=== PATIENT | male | born 1975 | race Caucasian/White ===

== ENCOUNTER 2022-07-23 21:23 | Inpatient (IN) | payer OTHER, SELFPAY ==
[2022-07-23 21:24] VITALS: BP 150/98; PULSE 73; RESP 15; TEMP 36.3; O2SAT 99; BMI 36.3
--- NOTE | 2022-07-23 22:59 | CT_ITS ---
EXAM: CT NECK WITH INTRAVENOUS CONTRAST CLINICAL INDICATION: neck pain TECHNIQUE: Helically acquired images were obtained of the neck with intravenous contrast. This CT exam was performed using one or more of the following dose reduction techniques: automated exposure control, adjustment of the mA and/or kV according to patient size, and/or use of iterative reconstruction technique. This report was created using [employer] report [employer] technology. CONTRAST: IV 100mL Isovue-300 COMPARISON: None. FINDINGS: NASOPHARYNX: Unremarkable. SUPRAHYOID NECK: Unremarkable. Oropharynx, oral cavity, parapharyngeal space and retropharyngeal space are unremarkable. INFRAHYOID NECK: Unremarkable. The larynx, hypopharynx and supraglottis are unremarkable. SUBMANDIBULAR/PAROTID GLANDS: Unremarkable. Glands are normal in size. THYROID: Unremarkable. No enlarged or calcified nodules. BONES/JOINTS: Degenerative changes of the cervical spine. No acute fracture. SOFT TISSUES: Unremarkable. VASCULATURE: No acute findings. LYMPH NODES: Unremarkable. No lymphadenopathy. LUNG APICES: Unremarkable as visualized. CT/Soft Tissue Neck WITH Contrast IMPRESSION: 1. No acute abnormalities identified involving the soft tissues of the neck or the other visualized structures. 2. Degenerative changes of the cervical spine. Electronically Signed: Austen Reece MD at 0:22 EDT ,
[2022-07-23] MEDS: Ondansetron 4 MG/2 ML Vial IV (23:40)
[2022-07-23] MEDS: Morphine 4 MG/ML Syringe IV (23:41)
[2022-07-23] MEDS: Orphenadrine 60 MG/2 ML Ampul IV (23:42)
[2022-07-23] MEDS: 0.9% Normal Saline 1,000 ML 999 ML IV (23:42)
[2022-07-23] MEDS: dexAMETHasone 10 MG/ML Vial IV (23:42)
[2022-07-23 23:55] LABS: Absolute Lymphocyte Count 3.38 X10^3/uL (0.83-4.51); Absolute Neutrophil Count 16.8 X10^3/uL (2.0-7.7); Basophil# 0.05 X10^3/uL; Basophil% 0.2 % (0-1); Eosinophil# 0.04 X10^3/uL; Eosinophils% 0.2 % (0-5); Hematocrit 41.5 % (40-54); Hemoglobin 14.5 g/dL (13.0-16.5); Lymphocyte # 3.38 X10^3/ul (0.83-4.51); Lymphocyte % 15.1 % (19-41); Mean Corp Hgb Conc 34.9 g/dL (32-36); Mean Corpuscular Hgb 29.7 pg (27.0-32.0); Mean Corpuscular Volume 84.9 fL (80-94); Mean Platelet Vol. 8.4 fl (6.2-12.0); Monocyte# 1.93 X10^3/uL; Monocyte% 8.6 % (0-10); NRBC Flagged by Analyzer 0 % (0-5); Neutrophil # 16.81 X10^3/uL (2.7-7.7); Neutrophil % 74.9 % (47-70); POSITIVE DIFFERENTIAL YES; Platelet Count 310 K/mm3 (150-450); RBC Distribution Width CV 12.8 % (11.6-14.6); RBC Distribution Width SD 39.4 fl (35.1-43.9); Red Blood Count 4.89 M/mm3 (4.6-6.2); White Blood Count 22.4 K/mm3 (4.4-11.0)
[2022-07-24] VITALS (10 sets, daily range): BP systolic 125–152; BP diastolic 85–110; PULSE 61–78; RESP 14–20; TEMP 36.6–37.3; O2SAT 93–97; BMI 36.0
[2022-07-24 00:08] LABS: Anion Gap 5 (5-15); BUN 16 mg/dL (7-18); BUN/Creat Ratio 17.8 RATIO (10-20); Calcium,Total 9.5 mg/dL (8.5-10.1); Chloride 105 mmol/L (98-107); EST Glomerular Filtration Rate 96 mL/min (>60); Est Glom Filt Rate - Afr Amer 116 mL/min (>60); Estimated Creatinine Clearance 121.27 ml/min; Glucose 121 mg/dL (74-106); Potassium 3.8 mmol/L (3.5-5.1); Sodium Level 136 mmol/L (136-145)
[2022-07-24 00:23] LABS: Differential Comment SCANNED; Differential Indicated SCAN CRITERIA MET
[2022-07-24] MEDS: HYDROmorphone 0.5 MG/0.5 ML SYRINGE IV (00:29)
--- NOTE | 2022-07-24 00:46 | CT_ITS ---
EXAM: CT HEAD WITHOUT INTRAVENOUS CONTRAST CLINICAL INDICATION: headache TECHNIQUE: Multiple axial images were obtained of the head without intravenous contrast. This CT exam was performed using one or more of the following dose reduction techniques: automated exposure control, adjustment of the mA and/or kV according to patient size, and/or use of iterative reconstruction technique. This report was created using [employer] report generation technology. COMPARISON: None. FINDINGS: BRAIN AND EXTRA-AXIAL SPACES: Unremarkable. No intra- or extra-axial hemorrhage. No evidence of acute infarct. No intracranial mass or mass effect. There is preservation of the arnett/white matter interface. Posterior fossa structures are unremarkable. Ventricles are appropriate for age. No hydrocephalus. Basal cisterns are patent. BONES/JOINTS: Unremarkable. No discrete lytic or blastic abnormalities. SINUSES: Unremarkable as visualized. Clear. MASTOID AIR CELLS: Unremarkable. Clear. ORBITS: Visualized globes, extraocular muscles, optic nerves and retrobulbar fat appear unremarkable. CT/Brain/Head without Contrast IMPRESSION: Negative head/brain CT without intravenous contrast. Electronically Signed: Austen Reece MD at 1:43 EDT ,
--- NOTE | 2022-07-24 01:13 | EX.ED.DYSGE1 ---
HPI History of Present Illness Chief Complaint: Other, Pain/Inj Narrative Narrative: Patient is a 46-year-old male with past medical history of hypertension and paroxysmal atrial fibrillation but not on anticoagulation. He states that on Thursday he began having a sore throat and went to his family doctor on Thursday because of persistent symptoms. He reports that he tested positive for strep at that time and was started on amoxicillin and tramadol. He reports despite taking these he has been having increasing neck pain with no trauma. He reports that he contacted the on-call physician and there was concern he could be developing a abscess and was sent to the ER for evaluation. Patient denies any fevers he denies any numbness tingling or weakness. He denies any headache or history of immunosuppression but with worsening sore throat and neck pain presents for evaluation. [facility] Medical History (Updated 07/24/22 @ 03:[address] Ryan Waite DO) History of tobacco use HTN (hypertension) Obesity JOHN (obstructive sleep apnea) PAF (paroxysmal atrial fibrillation) Home Medications amlodipine 10 mg tablet 10 mg PO DAILY 07/24/22 [History Last Taken Unknown] hydrochlorothiazide 25 mg tablet 25 mg PO DAILY 07/24/22 [History Last Taken Unknown] metoprolol succinate 25 mg tablet,extended release 24 hr 25 mg PO DAILY 07/24/22 [History Last Taken Unknown] Allergy/AdvReac Type Severity Reaction Status Date / Time No Known Allergies Allergy Verified 07/23/22 21:24 Family History (Updated 07/24/22 @ 01:[address] Isha Corea MD) Father Lymphoma Mother Cancer Heart disease PAF (paroxysmal atrial fibrillation) Surgical History (Updated 07/24/22 @ 01:[address] Isha Corea MD) History of dental surgery Social History (Updated 07/24/22 @ 01:[address] Isha Corea MD) household members: spouse and family Smoking Status: Former smoker how long ago did patient quit smoking: Quit 07/2022 ~ 1 week prior to current presentation, 1 ppd since teen. alcohol intake: never substance use type: does not use ROS ROS ED Constitutional Constitutional ED: Denies chills or fever(s) Eyes Eyes: Denies change in vision ENT ENT ED: Reports sore throat Cardiovascular Cardiovascular: Denies chest pain Respiratory/Chest Respiratory/Chest: Denies cough or dyspnea Gastrointestinal Gastrointestinal: Denies abdominal pain, diarrhea, nausea or vomiting Genitourinary Genitourinary ED: Denies dysuria Musculoskeletal Musculoskeletal: Reports neck pain Integumentary Denies rash Neurologic Neurologic: Denies headache(s) or paresthesias Hematologic/Lymphatic Hematologic/Lymphatic: Denies easy bleeding or easy bruising EXAM Physical Exam Const Vital Signs: 07/23/22 21:24 Temperature 97.4 F L Temperature Source Temporal Pulse Rate 73 Respiratory Rate 15 Blood Pressure 150/98 H Blood Pressure Mean 115 Pulse Ox 99 Oxygen Delivery Method Room Air Positive well nourished, well developed and obese General Appearance ED: well developed Nutritional Appearance: obese HEENT Reports moist mucous membranes HEENT Narrative: Patient has bilateral tonsil hypertrophy with faint erythema. No exudates are noted no hard palate petechiae no trismus or change in voice or difficulty with secretions. Eyes PERRL and EOMs intact bilaterally Neck Neck Narrative: Patient has nuchal rigidity and difficulty flexing extending or side bending or rotating his neck. There is midline pain to palpation over top of C7 and T1 muscle belly region as well Resp normal respiratory effort and clear to auscultation bilaterally Cardio regular rate and regular rhythm GI normal to inspection, nondistended, normoactive bowel sounds, non-tender, non-distended and no masses Auscultation: normoactive bowel sounds Palpation: soft Extremity normal to inspection Neuro oriented x3 and CN's II-XII intact bilaterally Sensorium / Orientation: alert Psych mental status grossly normal Skin no rashes or lesions noted MDM MDM MDM Narrative Medical decision making narrative: Patient presented to the ER afebrile. On exam he did not have obvious changes concerning for peritonsillar abscess or acute epiglottitis. However because of his increasing neck pain and recent diagnosis of strep pharyngitis this is concerning nonetheless and basic labs with a CT scan with IV contrast of the soft tissue of the neck was obtained. Labs revealed leukocytosis with elevated neutrophil count. Patient's CRP is also elevated at 102 consistent with acute inflammation. CT scan of the soft tissue of the neck revealed no acute findings. Patient is afebrile and does not have any type of petechial rash but this would be a late finding and with his high white count and CRP there is concern he has meningitis because of his nuchal rigidity. Therefore blood cultures were obtained and he was started on vancomycin and Rocephin. A lumbar puncture was also performed in order to confirm diagnosis of meningitis. The procedure was documented below. At this time because of the abnormal vitals with persistent pain and need to rule out systemic infection as the cause patient will be admitted to the hospital while blood cultures and spinal fluid culture are pending. This plan of care was discussed with the hospitalist who is agreeable to it as well as the patient and family who are also agreeable to the plan of care. Please note I felt no need to repeat a strep test as patient/family states that he tested positive at the physician office just yesterday Patient was placed in an upright seated position. The back was cleaned with Betadine. The skin was anesthetized using 5 mL of 2% lidocaine with epinephrine local fashion. A 20-gauge spinal needle was then used to access the epidural space through the L4/L5 joint space. There was return of clear cerebrospinal fluid and approximately 8 mL of spinal fluid were obtained. Patient tolerated procedure well without complication History & Record Review Discussion w/independent historian: Patient and Family Lab Data Attestation: I reviewed the patient's lab results. Labs: Laboratory Results - last 24 hr 07/23/22 07/23/22 07/23/22 23:50 23:50 23:50 WBC 22.4 H RBC 4.89 Hgb 14.5 Hct 41.5 MCV 84.9 MCH 29.7 MCHC 34.9 RDW Std Deviation 39.4 RDW Coeff of Erika 12.8 Plt Count 310 MPV 8.4 Immature Gran % (Auto) 1.000 H Neut % (Auto) 74.9 H Lymph % (Auto) 15.1 L Schleicher % (Auto) 8.6 Eos % (Auto) 0.2 Baso % (Auto) 0.2 Absolute Neuts (auto) 16.8 H Absolute Lymphs (auto) 3.38 Nucleated RBC % 0 Differential Comment SCANNED Diff Path Review September foll ESR 51 H Sodium 136 Potassium 3.8 Chloride 105 Carbon Dioxide 26.0 Anion Gap 5 BUN 16 Creatinine 0.90 Estim Creat Clear Calc 121.27 Est GFR (MDRD) Af Amer 116 Est GFR (MDRD) Non-Af 96 BUN/Creatinine Ratio 17.8 Glucose 121 H Lactic Acid Calcium 9.5 C-React Prot Ext Range 102.00 H Procalcitonin 07/24/22 07/24/22 00:55 01:08 WBC RBC Hgb Hct MCV MCH MCHC RDW Std Deviation RDW Coeff of Erika Plt Count MPV Immature Gran % (Auto) Neut % (Auto) Lymph % (Auto) Schleicher % (Auto) Eos % (Auto) Baso % (Auto) Absolute Neuts (auto) Absolute Lymphs (auto) Nucleated RBC % Differential Comment Diff Path Review ESR Sodium Potassium Chloride Carbon Dioxide Anion Gap BUN Creatinine Estim Creat Clear Calc Est GFR (MDRD) Af Amer Est GFR (MDRD) Non-Af BUN/Creatinine Ratio Glucose Lactic Acid 0.7 Calcium C-React Prot Ext Range Procalcitonin 0.07 Radiography Diagnostic Testing: Clinical Impression(s) from Imaging Studies Soft Tissue Neck CT 07/23/22 22:59 IMPRESSION: 1. No acute abnormalities identified involving the soft tissues of the neck or the other visualized structures. 2. Degenerative changes of the cervical spine. Electronically Signed: Austen Reece MD at 0:22 EDT Reading Location ID and State: [facility] / [place] Tel , Service support , Brain CT 07/24/22 00:46 IMPRESSION: Negative head/brain CT without intravenous contrast. Electronically Signed: Austen Reece MD at 1:43 EDT Reading Location ID and State: [facility] / [place] Tel , Service support , Management Discussion w/another healthcare provider: Hospitalist Discharge Plan Dx/Rx/DC Orders Clinical Impression: Streptococcal pharyngitis, Meningitis Disposition Disposition: Acute Care [facility]
[2022-07-24 01:35] LABS: Procalcitonin 0.07 ng/mL (0.00-0.09)
[2022-07-24 01:39] LABS: Lactic Acid 0.7 mmol/L (0.4-1.9)
--- NOTE | 2022-07-24 01:48 | PCM.HP.STD ---
HPI - General General Date of Admission: 07/24/22 Date of Service: 07/24/22 Chief Complaint: Recent sore throat, mild cough, Dx outpatient strep, worsening neck pain/rigidity. HPI Narrative The patient is a 46 y/o M w/ PMHx: Obesity, PAF, JOHN, HTN, Tobacco use with recent cessation over the last ~ 1 week (prior 1 ppd since teen) who presents to the [facility] ED on 07/24/22 with history of onset of mild congestion, sore throat as well as subjective chills and cough starting the prior with onset more so of sore throat over Thursday and PCP eventual evaluation of the Thursday with diagnosis at that time of strep throat following swab with initiation on tramadol and amoxicillin however he has become more fatigued with generalized weakness and had onset significant neck discomfort worse with any movement with sharp stabbing 10 out of 10 pain prompting referral to the ED for evaluation. There was one individual in the house a child who did have a viral type syndrome but was only ill for 1 to 2 days and improved. Patient denies any fevers, significant headache, nausea, emesis, abdominal pain or cramping or diarrhea work-up in the ED included T97.4, heart rate 73, BP 150/98, respiratory rate 15, 99% on room air, CBC with WBC 22.4, hemoglobin 14.5, platelet 310 with significant left shift, BMP with glucose 121 otherwise not marked appearing, CRP 102, lactic acid and procalcitonin pending per ED physician, CT soft tissue neck obtained secondary to concerns for possible abscess with no acute abnormalities identified of the soft tissues of the neck are other visualized structures with degenerative changes of the cervical spine. Discussed case with ED physician and given his concern for possible meningitis he noted intention to obtain CT of the head which is pending upon requested evaluation and attempted LP. In the ED patient ministered vancomycin, Rocephin, Norflex 60 mg IV x1, Zofran 4 mg IV x1, morphine 4 mg IV x1, Dilaudid 0.5 mg IV x1 as well as Decadron 10 mg IV x1 in addition to 1 L normal saline bolus. [facility] Medical History (Updated 07/24/22 @ 01:[address] Isha Corea MD) History of tobacco use HTN (hypertension) Obesity JOHN (obstructive sleep apnea) PAF (paroxysmal atrial fibrillation) Home Medications amlodipine 10 mg tablet 10 mg PO DAILY 07/24/22 [History Last Taken Unknown] hydrochlorothiazide 25 mg tablet 25 mg PO DAILY 07/24/22 [History Last Taken Unknown] metoprolol succinate 25 mg tablet,extended release 24 hr 25 mg PO DAILY 07/24/22 [History Last Taken Unknown] Allergy/AdvReac Type Severity Reaction Status Date / Time No Known Allergies Allergy Verified 07/23/22 21:24 Family History (Updated 07/24/22 @ 01:[address] Isha Corea MD) Father Lymphoma Mother Cancer Heart disease PAF (paroxysmal atrial fibrillation) Surgical History (Updated 07/24/22 @ 01:[address] Isha Corea MD) History of dental surgery Social History (Updated 07/24/22 @ 01:[address] Isha Corea MD) household members: spouse and family Smoking Status: Former smoker how long ago did patient quit smoking: Quit 07/2022 ~ 1 week prior to current presentation, 1 ppd since teen. alcohol intake: never substance use type: does not use ROS ROS Narrative Admission Review of Systems: CONSTITUTIONAL: No weight loss, fever, + chills, weakness or fatigue. HEENT: + Neck pain, congestion, sore throat. Eyes: No visual loss, blurred vision, double vision or yellow sclerae. Ears, Nose, Throat: No hearing loss, sneezing. SKIN: No rash or itching, lesions, wounds. CARDIOVASCULAR: No chest pain, chest pressure or chest discomfort, palpitations, edema, orthopnea, syncopal events. RESPIRATORY: + Cough, No shortness of breath, marked sputum, wheezing, hemoptysis. GASTROINTESTINAL: + No anorexia, nausea, vomiting or diarrhea, abdominal pain, melena, BRBPR. GENITOURINARY: No dysuria, frequency, urgency or retention. NEUROLOGICAL: + Neck pain/rigidity, No headache, dizziness, syncope, paralysis, ataxia, numbness or tingling in the extremities, focal weakness, change in bowel or bladder control, seizure. MUSCULOSKELETAL: + muscle, back pain, joint pain or stiffness. HEMATOLOGIC: No anemia, bleeding or bruising. LYMPHATICS: No enlarged nodes. No history of splenectomy. PSYCHIATRIC: No history of depression or anxiety. ENDOCRINOLOGIC: No reports of sweating, cold or heat intolerance. No polyuria or polydipsia. ALLERGIES: No history of asthma, hives, eczema or rhinitis. Vital Signs Vital Signs Vital Signs: 07/23/22 21:24 Temperature 97.4 F L Temperature Source Temporal Pulse Rate 73 Respiratory Rate 15 Blood Pressure 150/98 H Blood Pressure Mean 115 Pulse Ox 99 Oxygen Delivery Method Room Air Weight Weight: 290 lb 6.4 oz Body Mass Index (BMI) 36.3 Physical Exam Narrative Physical Examination: General: Awake, alert, oriented x 3 and cooperative, seated upright in bed the ED bed, fatigued, appears uncomfortable, holding himself very stiffly because of neck discomfort with movement Skin: Normal color, normal turgor, no icterus, no cyanosis. HEENT: AT/NC, EOMI, PERRLA, dry MM, no carotid bruits or JVD noted, certainly reproducible bilateral musculoskeletal cervical neck region reproducible discomfort on evaluation, significantly rigid with sharp 10 out of 10 pain with any attempt to sit up or hold his neck. Lungs: Diminished, greater bases, proper effort, no rales, ronchi or wheezing. Heart: Regular rate and rhythm; no gallop, rub audible. Abdomen: Soft, obese, NTTP, ND, mildly hyperactive BS, no HSM. Extremities: No cyanosis, clubbing, or edema. Neurological: Patient awake, alert, oriented as noted, cognitive function intact; pupils equally reactive to light and accommodation, cranial nerves grossly normal, moving all 4 extremities, no focal deficits, moderately to severely global decrease secondary to acute complaints as noted. Psychiatric: Affect appears flat, fatigued, uncomfortable appearing, no acute evidence of depressive or anxiety feelings. Results Lab / Micro Data Result Diagrams: 07/23/22 23:50 07/23/22 23:50 Labs: Laboratory Results - last 24 hr 07/23/22 23:50: WBC 22.4 H, RBC 4.89, Hgb 14.5, Hct 41.5, MCV 84.9, MCH 29.7, MCHC 34.9, RDW Std Deviation 39.4, RDW Coeff of Erika 12.8, Plt Count 310, MPV 8.4, Immature Gran % (Auto) 1.000 H, Neut % (Auto) 74.9 H, Lymph % (Auto) 15.1 L, [place] % (Auto) 8.6, Eos % (Auto) 0.2, Baso % (Auto) 0.2, Absolute Neuts (auto) 16.8 H, Absolute Lymphs (auto) 3.38, Nucleated RBC % 0, Differential Comment SCANNED, Diff Path Review September07/23/22 23:50: Sodium 136, Potassium 3.8, Chloride 105, Carbon Dioxide 26.0, Anion Gap 5, BUN 16, Creatinine 0.90, Estim Creat Clear Calc 121.27, Est GFR (MDRD) Af Amer 116, Est GFR (MDRD) Non-Af 96, BUN/Creatinine Ratio 17.8, Glucose 121 H, Calcium 9.5, C-React Prot Ext Range 102.00 H Radiology Impression Soft Tissue Neck CT 07/23/22 22:59 IMPRESSION: 1. No acute abnormalities identified involving the soft tissues of the neck or the other visualized structures. 2. Degenerative changes of the cervical spine. Electronically Signed: Austen Reece MD at 0:22 EDT Reading Location ID and State: [facility] / [place] Tel , Service support , Assessment & Plan Assessment/Plan (1) Meningitis: (2) Streptococcal pharyngitis: PLAN: Plan The patient is a 46 y/o M w/ PMHx: PAF, Obesity, JOHN, HTN, Tobacco use with recent cessation over the last ~ 1 week (prior 1 ppd since teen) who presents to the [facility] ED on 07/24/22 with history of onset of mild congestion, sore throat as well as subjective chills and cough starting the prior with onset more so of sore throat over Thursday and PCP eventual evaluation of the Thursday with diagnosis at that time of strep throat following swab with initiation on tramadol and amoxicillin however he has become more fatigued with generalized weakness and had onset significant neck discomfort worse with any movement with sharp stabbing 10 out of 10 pain prompting referral to the ED for evaluation. #1. Acute streptococcal pharyngitis with concerns for possible concurrent meningitis with possible recent acute viral syndrome: We will admit to medical surgical floor, awaiting CT of the head per ED as well as lumbar puncture and would certainly de-escalate or alter therapies pending cultures obtained from the LP, will maintain in the interim on IV vancomycin as well as IV Rocephin, continue as needed tizanidine given concurrent significant musculoskeletal component to the neck discomfort as well, maintain on aspiration precautions, as needed antiemetic, as needed pain regimen given severity of neck discomfort at this time as well. Pending LP may consider ID involvement, ESR also requested a CRP is notably elevated. We will obtain full respiratory panel and COVID PCR given vague respiratory symptoms and one ill contact in the house who had from the description of viral syndrome concurrently but is since improved. #2. Hypertension: Continue home regimen including amlodipine, hydrochlorothiazide as well as metoprolol with hold parameters as needed, PRN hydralazine. #3. PAF: We will continue patient home metoprolol regimen, not chronically anticoagulated, given recent diagnosis of sleep apnea possibly related, continue CPAP nightly. #4. Recent tobacco cessation with tobacco use history: Patient with 1 pack/day usage until recent cessation over the last week since he had been a teenager, encourage continued tobacco cessation, RT consultation, NR if desired. #5. Obesity: Weight loss and lifestyle changes encouraged. #6. JOHN: CPAP nightly. #7. DVT prophylaxis: SCDs, defer chemoprophylaxis as planned LP currently. #8. CODE STATUS: Full code. Admission Evaluation Time spent evaluating chart, patient history, patient evaluation, care planning and discussion with specialists: 60 minutes. Charges/Coding Visit Charges Inpatient E&M: 43552 Init Hosp L2
[2022-07-24 02:26] LABS: Erythrocyte Sedimentation Rate 51 mm/hr (0-20)
[2022-07-24 03:14] LABS: Body Fluid Mononuclear WBC # 0.001 10^3/uL
[2022-07-24 03:19] LABS: Glucose Spinal Fluid 62 mg/dL (40-75)
[2022-07-24 04:19] LABS: Appearance CSF (character) CLEAR (Clear); Auto B Fluid Analyzer BKGD Ct COUNTS W/IN LIMITS (W/IN LIMITS); Body Fluid QC Type(s) BF1Q; CSF Color COLORLESS (Colorless); RBC Count, Spinal Fluid 24 /mm-3 (None seen); Tested Tube # 4; White Count, CSF 3 /mm-3 (0 - 5)
[2022-07-24] MEDS: 0.9% Normal Saline 1,000 ML 125 ML IV (05:36)
[2022-07-24] MEDS: Ketorolac 15 MG/ML Vial IV ×3 (05:40→22:37)
--- NOTE | 2022-07-24 05:54 | PCM.RX.CS ---
Consult Pharmacy has been consulted to manage selected antiobiotic: Vancomycin Type of Consult: New start Labs: Sodium 136 mmol/L (136-145) 07/23/22 23:50 Potassium 3.8 mmol/L (3.5-5.1) 07/23/22 23:50 Chloride 105 mmol/L (98-107) 07/23/22 23:50 Carbon Dioxide 26.0 mmol/L (21.0-32.0) 07/23/22 23:50 Anion Gap 5 (5-15) 07/23/22 23:50 BUN 16 mg/dL (7-18) 07/23/22 23:50 Creatinine 0.90 mg/dL (0.70-1.30) 07/23/22 23:50 Est GFR (MDRD) Af Amer 116 mL/min (>60) 07/23/22 23:50 Est GFR (MDRD) Non-Af 96 mL/min (>60) 07/23/22 23:50 BUN/Creatinine Ratio 17.8 RATIO (10-20) 07/23/22 23:50 Glucose 121 mg/dL (74-106) H 07/23/22 23:50 Microbiology: Microbiology 07/24/22 02:57 Csf, Spinal Fluid Gram Stain - Preliminary Goal Trough: 15-20 mcg/mL Pharmacy Plan for Drug Dosing: Pharmacy Service will continue to monitor and adjust dosing as required. Medications Vancomycin HCl 1,500 mg/ (Sodium Chloride) 530 mls @ 250 mls/hr IV Q8H SHERLEY Discontinued Medications Vancomycin HCl 2,000 mg/ (Sodium Chloride) 540 mls @ 250 mls/hr IV X1 ONE Stop: 07/24/22 02:59 Last Admin: 07/24/22 05:41 Dose: Infused Follow-Up Labs: Trough Vancomycin Labs to be done on [date and time ordered]: 07/25 @ 0139
[2022-07-24 06:19] LABS: Absolute Lymphocyte Count 1.87 X10^3/uL (0.83-4.51); Absolute Neutrophil Count 17.5 X10^3/uL (2.0-7.7); Basophil# 0.03 X10^3/uL; Basophil% 0.2 % (0-1); Hematocrit 41.5 % (40-54); Hemoglobin 14.5 g/dL (13.0-16.5); Lymphocyte # 1.87 X10^3/ul (0.83-4.51); Lymphocyte % 9.4 % (19-41); Mean Corp Hgb Conc 34.9 g/dL (32-36); Mean Corpuscular Volume 85.7 fL (80-94); Mean Platelet Vol. 8.4 fl (6.2-12.0); Monocyte# 0.38 X10^3/uL; Monocyte% 1.9 % (0-10); NRBC Flagged by Analyzer 0 % (0-5); Neutrophil # 17.49 X10^3/uL (2.7-7.7); Neutrophil % 87.6 % (47-70); Platelet Count 300 K/mm3 (150-450); RBC Distribution Width CV 12.7 % (11.6-14.6); RBC Distribution Width SD 39.7 fl (35.1-43.9); Red Blood Count 4.84 M/mm3 (4.6-6.2)
[2022-07-24 06:32] LABS: ALB/GLOB Ratio 0.6 RATIO (0.9-2.4); AST(SGOT) 11 U/L (15-37); Alanine Aminotransfer ALT/SGPT 29 U/L (16-61); Alkaline Phosphatase 81 U/L (45-117); Anion Gap 6 (5-15); BUN 14 mg/dL (7-18); BUN/Creat Ratio 16.3 RATIO (10-20); Calcium,Total 9.3 mg/dL (8.5-10.1); Chloride 106 mmol/L (98-107); Creatinine, Serum 0.86 mg/dL (0.70-1.30); EST Glomerular Filtration Rate 101 mL/min (>60); Est Glom Filt Rate - Afr Amer 123 mL/min (>60); Estimated Creatinine Clearance 126.91 ml/min; Globulin 4.8 g/dL (2.2-4.2); Glucose 149 mg/dL (74-106); Potassium 4.1 mmol/L (3.5-5.1); Protein, Total 7.8 g/dL (6.4-8.2); Sodium Level 138 mmol/L (136-145)
[2022-07-24] MEDS: Gabapentin 100 MG Capsule PO ×3 (08:36→17:27)
[2022-07-24] MEDS: Metoprolol(XL)Succ 25 MG Tablet PO (08:37)
[2022-07-24] MEDS: hydroCHLOROthiazide 25 MG Tablet PO (08:37)
[2022-07-24] MEDS: amLODIPine 10 MG Tablet PO (08:37)
--- NOTE | 2022-07-24 12:00 | CASEMGMT ---
RN MINA Face to Face with patient for initial transition planning/care coordination assessment. RN CM introduced self and role at [facility]. Patient lying in bed, alert and oriented. Patient willing to participate in assessment and is able to answer all questions appropriately. Care providers, pharmacy, and demographics verified. Patient wishes to discharge home, denies need for home health at this time. Patient states he has no further needs or concerns at this time. CM to follow for discharge planning needs that may arise. PCP: Jareth Judd Specialists: Patient follows with gymnastics coach in [place] Preferred Pharmacy: [facility] Insurance: [employer] Prescription Benefit: yes Living Will/HPOA: yes, Christiane Carrizales LNOK: Living Arrangements: Patient lives with in a 2 story home. Patient is independent and able to ambulate stairs Transportation: self, DME/HHC: Patient denies DME in the home. No previous HHC or SNF. Disposition Plan: Patient to discharge home with family support and follow-up plans in place. Margaret REYNAGA, RN, CM
[2022-07-24 13:25] LABS: Pathologist Review Reviewed
[2022-07-24] MEDS: 0.9% Saline Lock 10 ML Syringe IV ×2 (14:11→22:37)
--- NOTE | 2022-07-24 15:28 | PN_ITS ---
Subjective Subjective Patient seen and examined. He feels much better. He feels his sore throat has improved and his neck pain has improved markedly. He denies any fever, chills, palpitations, dizziness, nausea vomiting or any other symptoms. Review of systems otherwise negative. He has remained hemodynamically stable. Objective Data Objective Data Vital Signs: Vital Signs Temp Pulse Resp BP Pulse Ox O2 Del Method 98.4 F 63 14 135/88 H 97 Room Air 07/24/22 14:11 07/24/22 14:11 07/24/22 14:11 07/24/22 14:11 07/24/22 14:11 07/24/22 14:11 Oxygen Delivery Method Room Air Weight: 288 lb 2.307 oz Body Mass Index (BMI) 36.0 Intake & Output: Intake and Output for Last 24 Hours 07/22/22 07/23/22 07/24/22 23:59 23:59 23:59 Intake Total 3102.92 / 3102.92 Balance 3102.92 / 3102.92 Lab / Micro Data Result Diagrams: 07/24/22 05:50 07/24/22 05:50 Labs: Laboratory Results - last 24 hr 07/23/22 23:50: WBC 22.4 H, RBC 4.89, Hgb 14.5, Hct 41.5, MCV 84.9, MCH 29.7, MCHC 34.9, RDW Std Deviation 39.4, RDW Coeff of Erika 12.8, Plt Count 310, MPV 8.4, Immature Gran % (Auto) 1.000 H, Neut % (Auto) 74.9 H, Lymph % (Auto) 15.1 L , [place] % (Auto) 8.6, Eos % (Auto) 0.2, Baso % (Auto) 0.2, Absolute Neuts (auto) 16.8 H, Absolute Lymphs (auto) 3.38, Nucleated RBC % 0, Differential Comment SCANNED, Diff Path Review Reviewed 07/23/22 23:50: Sodium 136, Potassium 3.8, Chloride 105, Carbon Dioxide 26.0, Anion Gap 5, BUN 16, Creatinine 0.90, Estim Creat Clear Calc 121.27, Est GFR (MDRD) Af Amer 116, Est GFR (MDRD) Non-Af 96, BUN/Creatinine Ratio 17.8, Glucose 121 H, Calcium 9.5, C-React Prot Ext Range 102.00 H 07/23/22 23:50: ESR 51 H 07/24/22 00:55: Lactic Acid 0.7 07/24/22 01:08: Procalcitonin 0.07 07/24/22 02:00: COVID-19 (SAMY) Not Detected 07/24/22 02:57: CSF Glucose 62, CSF Total Protein 31.0 07/24/22 02:57: Fld Polynuclear WBCs # 0.000, Fld Polynuclear WBCs % 0.0, Fluid Mononuclear WBCs 0.001, Fld Mononuclear WBCs % 100.0, CSF Appearance CLEAR, CSF Color COLORLESS, CSF WBC 3, CSF RBC 24 H, CSF Cell Count Tube # 4, CSF Total Cell Counted TNP, CSF Comment May follow 07/24/22 05:50: WBC 20.0 H, RBC 4.84, Hgb 14.5, Hct 41.5, MCV 85.7, MCH 30.0, MCHC 34.9, RDW Std Deviation 39.7, RDW Coeff of Erika 12.7, Plt Count 300, MPV 8.4, Immature Gran % (Auto) 0.900, Neut % (Auto) 87.6 H, Lymph % (Auto) 9.4 L, [place] % (Auto) 1.9, Eos % (Auto) 0.0, Baso % (Auto) 0.2, Absolute Neuts (auto) 17.5 H, Absolute Lymphs (auto) 1.87, Nucleated RBC % 0 07/24/22 05:50: Sodium 138, Potassium 4.1, Chloride 106, Carbon Dioxide 26.0, Anion Gap 6, BUN 14, Creatinine 0.86, Estim Creat Clear Calc 126.91, Est GFR (MDRD) Af Amer 123, Est GFR (MDRD) Non-Af 101, BUN/Creatinine Ratio 16.3, Glucose 149 H, Calcium 9.3, Total Bilirubin 0.50, AST 11 L, ALT 29, Alkaline Phosphatase 81, Total Protein 7.8, Albumin 3.0 L, Globulin 4.8 H, Albumin/Globulin Ratio 0.6 L Micro: Microbiology 07/24/22 02:57 Csf, Spinal Fluid Gram Stain - Final 07/24/22 02:00 Mucosa - Nasopharyngeal Respiratory Panel (PCR) - Final Radiography Diagnostic Testing: Radiology Impression Soft Tissue Neck CT 07/23/22 22:59 IMPRESSION: 1. No acute abnormalities identified involving the soft tissues of the neck or the other visualized structures. 2. Degenerative changes of the cervical spine. Electronically Signed: Austen Reece MD at 0:22 EDT Reading Location ID and State: [address] [place] [address] Tel , Service support , Brain CT 07/24/22 00:46 IMPRESSION: Negative head/brain CT without intravenous contrast. Electronically Signed: Austen Reece MD at 1:43 EDT Reading Location ID and State: [facility] / [place] Tel , Service support , Physical Exam Const alert, oriented x3 and no apparent distress General Appearance: cooperative HEENT normocephalic, head/scalp atraumatic and moist oral mucous membranes Eyes EOMs intact bilaterally Neck no lymphadenopathy, supple and no JVD Neck Narrative: nuchal rigidity has improved. Able to flex neck much more now Lymph Lymphatic: no lymphadenopathy noted and no lymphedema noted Resp normal respiratory effort, normal air movement and clear to auscultation bilaterally Cardio regular rate, regular rhythm, S1 normal heart sound, S2 normal heart sound and no murmurs GI normal to inspection, nondistended, normoactive bowel sounds, soft to palpation, non-tender and non-distended Extremity normal capillary refill and no clubbing, cyanosis or edema Skin General Skin Exam: no breakdown Neuro CN's II-XII intact bilaterally, no focal motor deficits, no sensory deficits noted and deep tendon reflexes 2+ bilaterally Neuro Narrative: neck supple, Kernig's and Brudzinski's signs negative Motor Exam: strength 5/5 throughout Psych thought process normal Assessment & Plan Assessment/Plan (1) Streptococcal pharyngitis: PLAN: Plan #Strep pharyngitis * sore throat is much beter and he is able to flex his neck much more now * Diagnosed wih strep throat a couple of days prior to admission * on IV vancomycin and rocephin * on IV morphine also * pain meds as tolerated * cepacol lozenges * WBC has trended down to 20. * due to low suspicion for meningitis and his neck pain explaiined by the pharyngitis, will dc the vanc and rocephin and place on zosyn * #Neck pain * On admission complained of neck pain and nuchal rigidity. LP done shows no evidence of meningitis. * Neck pain is largely resolved and he is able to flex and extend his neck much better. * CT soft tissue neck showed no acute abnormalities involving the soft tissues o f the neck or the visualized structures. * Brain CT showed no acute intracranial pathology. * I have a low suspicion for meningitis and think that the neck pain was likely due to the severity of his strep pharyngitis. * #Hypertension: On amlodipine and hydrochlorothiazide as well as metoprolol. On IV hydralazine as needed #Paroxysmal A-fib: On metoprolol. Not chronically anticoagulated. Unclear why. May be because his age does not meet the cutoff criteria. #JOHN: On CPAP nightly. #DVT prophylaxis: SCDs Charges/Coding Visit Charges Inpatient E&M: 67402 Subs Hosp L2
[2022-07-25 03:04] VITALS: BP 137/99; PULSE 58; RESP 20; TEMP 36.4; O2SAT 93
[2022-07-25] MEDS: Ketorolac 15 MG/ML Vial IV ×2 (04:54→13:02)
[2022-07-25 06:00] VITALS: BMI 35.9
[2022-07-25 07:17] LABS: Absolute Lymphocyte Count 5.02 X10^3/uL (0.83-4.51); Absolute Neutrophil Count 12.4 X10^3/uL (2.0-7.7); Basophil# 0.07 X10^3/uL; Basophil% 0.4 % (0-1); Eosinophil# 0.03 X10^3/uL; Eosinophils% 0.2 % (0-5); Hematocrit 41.2 % (40-54); Hemoglobin 14.1 g/dL (13.0-16.5); Lymphocyte # 5.02 X10^3/ul (0.83-4.51); Lymphocyte % 26.4 % (19-41); Mean Corp Hgb Conc 34.2 g/dL (32-36); Mean Corpuscular Hgb 29.7 pg (27.0-32.0); Mean Corpuscular Volume 86.9 fL (80-94); Mean Platelet Vol. 8.5 fl (6.2-12.0); Monocyte# 1.37 X10^3/uL; Monocyte% 7.2 % (0-10); NRBC Flagged by Analyzer 0 % (0-5); Neutrophil % 65.1 % (47-70); POSITIVE DIFFERENTIAL YES; POSITIVE MORPHOLOGY YES; Platelet Count 307 K/mm3 (150-450); RBC Distribution Width CV 12.8 % (11.6-14.6); RBC Distribution Width SD 40.7 fl (35.1-43.9); Red Blood Count 4.74 M/mm3 (4.6-6.2)
[2022-07-25 07:36] LABS: Anion Gap 8 (5-15); BUN 18 mg/dL (7-18); BUN/Creat Ratio 25.2 RATIO (10-20); Calcium,Total 8.9 mg/dL (8.5-10.1); Chloride 108 mmol/L (98-107); Creatinine, Serum 0.71 mg/dL (0.70-1.30); EST Glomerular Filtration Rate 125 mL/min (>60); Est Glom Filt Rate - Afr Amer 152 mL/min (>60); Estimated Creatinine Clearance 153.73 ml/min; Glucose 100 mg/dL (74-106); Potassium 3.4 mmol/L (3.5-5.1); Sodium Level 142 mmol/L (136-145)
[2022-07-25 07:39] LABS: Differential Indicated SCAN CRITERIA MET
[2022-07-25 08:26] VITALS: O2SAT 93
[2022-07-25 08:41] LABS: Reactive Lymphocyte 1+
[2022-07-25 09:05] VITALS: BP 131/93; PULSE 58; RESP 16; TEMP 36.9; O2SAT 95
[2022-07-25 09:13] VITALS: PULSE 62
[2022-07-25] MEDS: amLODIPine 10 MG Tablet PO (09:13)
[2022-07-25] MEDS: Gabapentin 100 MG Capsule PO ×3 (09:13→17:18)
[2022-07-25] MEDS: Metoprolol(XL)Succ 25 MG Tablet PO (09:13)
[2022-07-25] MEDS: Potassium Chloride Oral Tablet 20 MEQ 40 MEQ PO (09:13)
[2022-07-25] MEDS: hydroCHLOROthiazide 25 MG Tablet PO (09:14)
[2022-07-25 09:34] LABS: Pathologist Review Reviewed
[2022-07-25] MEDS: tiZANidine HCl 2 MG Tablet PO ×2 (13:32→22:25)
--- NOTE | 2022-07-25 14:30 | CON.PCM.ID_ITS ---
Assessment & Plan Assessment/Plan (1) Streptococcal pharyngitis: PLAN: No meningitis on LP. Will narrow zosyn to ceftriaxone. Likely can complete 7 days total of abx with po amox that he has at home. CT showed no abscess. Exam most consistent with muscle spasm, would recommend scheduled relaxer. Will follow, thank you, d/w Dr. Naylor HPI Consult Data Date of Consult: 07/25/22 HPI Narrative Reason for Consultation: neck pain HPI Narrative: SHILPA ROD, is a 46 M who presented 07/24 with acute onset neck pain, rated 10/10, worse with movement. Developed sore throat, mild congestion last week, saw PCP, started on po amox for strep throat. Took 3 doses prior to coming in. LP done. No headache. No fever or chills. [place] better this AM, now neck agai n is sore. Eating and drinking fine. Sore throat is resolved. Additional history obtained from his . Full ROS performed and neg except as noted above. [facility] Medical History Bursitis History of tobacco use HTN (hypertension) Obesity JOHN (obstructive sleep apnea) PAF (paroxysmal atrial fibrillation) Home Medications amlodipine 10 mg tablet 10 mg PO DAILY 07/24/22 [History Last Taken Unknown] aspirin 81 mg tablet 81 mg PO thinner 07/24/22 [History Last Taken Unknown] hydrochlorothiazide 25 mg tablet 25 mg PO DAILY 07/24/22 [History Last Taken Unknown] metoprolol succinate 25 mg tablet,extended release 24 hr 25 mg PO DAILY 07/24/22 [History Last Taken Unknown] Allergy/AdvReac Type Severity Reaction Status Date / Time No Known Allergies Allergy Verified 07/23/22 21:24 Family History (Updated 07/24/22 @ 01:[address] Isha Corea MD) Father Lymphoma Mother Cancer Heart disease PAF (paroxysmal atrial fibrillation) Surgical History (Updated 07/24/22 @ 01:[address] Isha Corea MD) History of dental surgery Social History (Updated 07/24/22 @ 01:[address] Isha Corea MD) household members: spouse and family Smoking Status: Former smoker how long ago did patient quit smoking: Quit 07/2022 ~ 1 week prior to current presentation, 1 ppd since teen. alcohol intake: never substance use type: does not use Physical Exam Const alert, oriented x3 and no apparent distress General Appearance: cooperative HEENT normocephalic and head/scalp atraumatic Eyes PERRL and EOMs intact bilaterally Neck Neck Narrative: mild soreness with ROM. Mild tender to palpation over posterior muscles Resp normal air movement and clear to auscultation bilaterally Cardio regular rate and regular rhythm GI soft to palpation, non-tender and non-distended Extremity General Extremity: Negative for edema Skin no rashes or lesions noted Neuro CN's II-XII intact bilaterally Lab / Micro Data Attestation: I reviewed the patient's lab results. Result Diagrams: 07/25/22 07:00 07/25/22 07:00 Labs: Laboratory Results - last 24 hr 07/24/22 02:57: CSF Comment Reviewed 07/25/22 07:00: WBC 19.0 H, RBC 4.74, Hgb 14.1, Hct 41.2, MCV 86.9, MCH 29.7, MCHC 34.2, RDW Std Deviation 40.7, RDW Coeff of Erika 12.8, Plt Count 307, MPV 8.5, Immature Gran % (Auto) 0.700, Neut % (Auto) 65.1, Lymph % (Auto) 26.4, [place] % (Auto) 7.2, Eos % (Auto) 0.2, Baso % (Auto) 0.4, Absolute Neuts (auto) 12.4 H, Absolute Lymphs (auto) 5.02 H, Nucleated RBC % 0, Differential Comment COMMENT, Reactive Lymphocytes 1+ 07/25/22 07:00: Sodium 142, Potassium 3.4 L, Chloride 108 H, Carbon Dioxide 26.0, Anion Gap 8, BUN 18, Creatinine 0.71, Estim Creat Clear Calc 153.73, Est GFR (MDRD) Af Amer 152, Est GFR (MDRD) Non-Af 125, BUN/Creatinine Ratio 25.2 H, Glucose 100, Calcium 8.9 Micro: Microbiology 07/24/22 02:57 Csf, Spinal Fluid Gram Stain - Final 07/24/22 02:57 Csf, Spinal Fluid CSF Culture - Preliminary No growth in 24 hours. Final to follow.
[2022-07-25] MEDS: Ceftriaxone 1 GM/50 ML BAG IV (14:56)
[2022-07-25 15:05] VITALS: BP 121/87; PULSE 58; RESP 16; TEMP 36.6; O2SAT 92
--- NOTE | 2022-07-25 15:21 | PN_ITS ---
Subjective Subjective Patient seen and examined. He had no complaints. He said his neck pain had improved. He feels much better. Subsequently I was informed by his nurse that patient started he was still having neck stiffness and neck tightness. He was still able to flex and extend his neck. Review of systems otherwise negative. He has remained hemodynamically stable. WBC still elevated at 19. Objective Data Objective Data Vital Signs: Vital Signs Temp Pulse Resp BP Pulse Ox O2 Del Method 97.9 F 58 L 16 121/87 H 92 Room Air 07/25/22 15:05 07/25/22 15:05 07/25/22 15:05 07/25/22 15:05 07/25/22 15:05 07/25/22 15:05 Oxygen Delivery Method Room Air Weight: 287 lb 11.252 oz Body Mass Index (BMI) 35.9 Intake & Output: Intake and Output for Last 24 Hours 07/23/22 07/24/22 07/25/22 23:59 23:59 23:59 Intake Total 3462.92 / 3662.92 790 / 790 Balance 3462.92 / 3662.92 790 / 790 Lab / Micro Data Result Diagrams: 07/25/22 07:00 07/25/22 07:00 Labs: Laboratory Results - last 24 hr 07/24/22 02:57: CSF Comment Reviewed 07/25/22 07:00: WBC 19.0 H, RBC 4.74, Hgb 14.1, Hct 41.2, MCV 86.9, MCH 29.7, MCHC 34.2, RDW Std Deviation 40.7, RDW Coeff of Erika 12.8, Plt Count 307, MPV 8.5, Immature Gran % (Auto) 0.700, Neut % (Auto) 65.1, Lymph % (Auto) 26.4, [place] % (Auto) 7.2, Eos % (Auto) 0.2, Baso % (Auto) 0.4, Absolute Neuts (auto) 12.4 H, Absolute Lymphs (auto) 5.02 H, Nucleated RBC % 0, Differential Comment COMMENT, Reactive Lymphocytes 1+ 07/25/22 07:00: Sodium 142, Potassium 3.4 L, Chloride 108 H, Carbon Dioxide 26.0, Anion Gap 8, BUN 18, Creatinine 0.71, Estim Creat Clear Calc 153.73, Est GFR (MDRD) Af Amer 152, Est GFR (MDRD) Non-Af 125, BUN/Creatinine Ratio 25.2 H, Glucose 100, Calcium 8.9 Micro: Microbiology 07/24/22 02:57 Csf, Spinal Fluid Gram Stain - Final 07/24/22 02:57 Csf, Spinal Fluid CSF Culture - Preliminary No growth in 24 hours. Final to follow. 07/24/22 02:00 Mucosa - Nasopharyngeal Respiratory Panel (PCR) - Final Physical Exam Const alert, oriented x3 and no apparent distress General Appearance: cooperative HEENT normocephalic, head/scalp atraumatic and moist oral mucous membranes Eyes PERRL and EOMs intact bilaterally Neck no lymphadenopathy, supple and no JVD Neck Narrative: nuchal rigidity has improved. Able to flex neck much more now Lymph Lymphatic: no lymphadenopathy noted and no lymphedema noted Resp normal respiratory effort, normal air movement and clear to auscultation bilaterally Cardio regular rate, regular rhythm, S1 normal heart sound, S2 normal heart sound and no murmurs GI normal to inspection, nondistended, normoactive bowel sounds, soft to palpation, non-tender and non-distended Extremity normal capillary refill and no clubbing, cyanosis or edema Skin General Skin Exam: no breakdown Neuro CN's II-XII intact bilaterally, no focal motor deficits, no sensory deficits noted and deep tendon reflexes 2+ bilaterally Neuro Narrative: neck supple, Kernig's and Brudzinski's signs negative Motor Exam: strength 5/5 throughout Psych thought process normal and cooperative Appearance: appropriate Assessment & Plan Assessment/Plan (1) Streptococcal pharyngitis: PLAN: Plan #Strep pharyngitis * sore throat is much better and he is able to flex his neck much more now * Diagnosed wih strep throat a couple of days prior to admission * on IV zosyn; still complaining of heck pain * ID reviewed patient today and narrow down antibiotics to Rocephin. * WBCs 19 today * * #Neck pain * On admission complained of neck pain and nuchal rigidity. LP done shows no evidence of meningitis. * Neck pain is improving. * CT soft tissue neck showed no acute abnormalities involving the soft tissues of the neck or the visualized structures. * Brain CT showed no acute intracranial pathology. * I have a low suspicion for meningitis and think that the neck pain was likely due to the severity of his strep pharyngitis. * Antibiotics narrowed down to IV ceftriaxone. Will place on p.o. amoxicillin at discharge. * #Hypertension: On amlodipine and hydrochlorothiazide as well as metoprolol. On IV hydralazine as needed #Paroxysmal A-fib: On metoprolol. Not chronically anticoagulated. Unclear why. May be because his age does not meet the cutoff criteria. #JOHN: On CPAP nightly. #DVT prophylaxis: SCDs Disposition: For discharge home tomorrow when WBC will be expected 12 trended down somewhat. Charges/Coding Visit Charges Inpatient E&M: 35489 Subs Hosp L2
--- NOTE | 2022-07-25 15:48 | CHAPLAIN ---
Type of Pastoral Visit _x__ Initial Visit ___ Follow-up Visit ___ On-call Visit ___ General Patient Visit ___ Spiritual Assessment ___ Family Conference ___ Bereavement ___ Rapid Response ___ Code Blue ___ Other (describe below) Pastoral Care Referral From _x__ Patient ___ Family ___ Nurse ___ Physician ___ Wax Molder ___ Major Account Representative ___ Other (describe below) Sacrament/Intervention _x__ Active listening ___ Anointing ___ Hinduism ___ Bereavement ___ Communion ___ Karey exploration ___ _x__ Life review _x__ Prayer ___ Reconciliation ___ Sacrament of Sick _x__ Supportive presence ___ Wedding ___ Other (describe below) Pastoral Comments patient and spouse together in the room; pt states that I've been better and illustrates this by I have a family at home and a great job with meaning that he would prefer to be there; explored how patient is coping and processing his disappointment and illness; pt states that he is mostly fine but just wants to get better and back to his routine; spouse also offers that there needs to be clear understanding of what infection/illness that the pt has so it can be properly treated; family is involved in a congregation in [place] and have support there; prayer given
[2022-07-25 22:19] VITALS: BP 145/96; PULSE 65; RESP 15; TEMP 36.9; O2SAT 98
[2022-07-25] MEDS: Acetaminophen 325 MG Tablet 650 MG PO (22:25)
[2022-07-26] MEDS: Acetaminophen 325 MG Tablet 650 MG PO (03:54)
[2022-07-26 03:58] VITALS: BP 146/109; PULSE 61; RESP 15; TEMP 36.8; O2SAT 96
[2022-07-26] MEDS: tiZANidine HCl 2 MG Tablet PO (06:34)
[2022-07-26 06:46] LABS: Absolute Lymphocyte Count 3.96 X10^3/uL (0.83-4.51); Absolute Neutrophil Count 12.9 X10^3/uL (2.0-7.7); Basophil# 0.06 X10^3/uL; Basophil% 0.3 % (0-1); Eosinophil# 0.13 X10^3/uL; Eosinophils% 0.7 % (0-5); Hematocrit 41.6 % (40-54); Hemoglobin 14.6 g/dL (13.0-16.5); Lymphocyte # 3.96 X10^3/ul (0.83-4.51); Lymphocyte % 21.2 % (19-41); Mean Corp Hgb Conc 35.1 g/dL (32-36); Mean Corpuscular Volume 85.6 fL (80-94); Mean Platelet Vol. 8.4 fl (6.2-12.0); Monocyte# 1.42 X10^3/uL; Monocyte% 7.6 % (0-10); NRBC Flagged by Analyzer 0 % (0-5); Neutrophil # 12.94 X10^3/uL (2.7-7.7); Neutrophil % 69.5 % (47-70); Platelet Count 308 K/mm3 (150-450); RBC Distribution Width CV 12.8 % (11.6-14.6); RBC Distribution Width SD 39.8 fl (35.1-43.9); Red Blood Count 4.86 M/mm3 (4.6-6.2); White Blood Count 18.6 K/mm3 (4.4-11.0)
[2022-07-26 07:19] LABS: Anion Gap 4 (5-15); BUN 18 mg/dL (7-18); BUN/Creat Ratio 21.9 RATIO (10-20); Calcium,Total 9.2 mg/dL (8.5-10.1); Chloride 107 mmol/L (98-107); Creatinine, Serum 0.82 mg/dL (0.70-1.30); EST Glomerular Filtration Rate 106 mL/min (>60); Est Glom Filt Rate - Afr Amer 129 mL/min (>60); Glucose 99 mg/dL (74-106); Potassium 3.6 mmol/L (3.5-5.1); Sodium Level 137 mmol/L (136-145)
[2022-07-26 07:58] VITALS: O2SAT 95
[2022-07-26 09:10] VITALS: BP 136/86; PULSE 66; RESP 14; TEMP 36.6; O2SAT 95
[2022-07-26 09:12] VITALS: PULSE 66
[2022-07-26] MEDS: Metoprolol(XL)Succ 25 MG Tablet PO (09:12)
[2022-07-26] MEDS: hydroCHLOROthiazide 25 MG Tablet PO (09:12)
[2022-07-26] MEDS: amLODIPine 10 MG Tablet PO (09:12)
[2022-07-26] MEDS: Ceftriaxone 1 GM/50 ML BAG IV (09:14)
[2022-07-26] MEDS: 0.9% Saline Lock 10 ML Syringe IV (09:14)
[2022-07-26] MEDS: Gabapentin 100 MG Capsule PO ×2 (09:14→11:49)
--- NOTE | 2022-07-26 11:46 | DS.PCM_ITS ---
Providers Date of Admission: 07/24/22 Date of Discharge: 07/26/22 Primary Care Physician: Dr. Jareth Judd MD Consultations 07/25/22 13:48 Consult: Infectious Disease Routine Consulting Provider: Camacho Marshall Reason for Consult: neck stiffness EMERGENT Consult: No MD Notified: Yes Date Notified: 07/25/22 Time Notified: 13:48 Method of Notification: Verbal Reason For Visit: STREP PHARYNGITIS, MENINGITIS Diagnosis Discharge Diagnosis (1) Streptococcal pharyngitis: Status: Acute Code(s): J02.0 - Streptococcal pharyngitis Plan #Strep pharyngitis * sore throat is much better and he is able to flex his neck much more now * Diagnosed wih strep throat a couple of days prior to admission * on IV zosyn; still complaining of heck pain * ID reviewed patient today and narrow down antibiotics to Rocephin. * WBCs 19 today * * #Neck pain * On admission complained of neck pain and nuchal rigidity. LP done shows no evidence of meningitis. * Neck pain is improving. * CT soft tissue neck showed no acute abnormalities involving the soft tissues of the neck or the visualized structures. * Brain CT showed no acute intracranial pathology. * I have a low suspicion for meningitis and think that the neck pain was likely due to the severity of his strep pharyngitis. * Antibiotics narrowed down to IV ceftriaxone. Will place on p.o. amoxicillin at discharge. * #Hypertension: On amlodipine and hydrochlorothiazide as well as metoprolol. On IV hydralazine as needed #Paroxysmal A-fib: On metoprolol. Not chronically anticoagulated. Unclear why. May be because his age does not meet the cutoff criteria. #JOHN: On CPAP nightly. #DVT prophylaxis: SCDs Disposition: For discharge home tomorrow when WBC will be expected 12 trended down somewhat. Medications at Discharge Home Medications amlodipine 10 mg tablet 10 mg PO DAILY 07/24/22 aspirin 81 mg tablet 81 mg PO thinner 07/24/22 hydrochlorothiazide 25 mg tablet 25 mg PO DAILY 07/24/22 metoprolol succinate 25 mg tablet,extended release 24 hr 25 mg PO DAILY 07/24/22 amoxicillin 500 mg capsule 500 mg PO Q12H #8 caps 07/26/22 tizanidine 2 mg tablet 2 mg PO Q8 #30 tabs 07/26/22 Hospital Course Operations None Procedures None Summary of Care Provided Minutes Spent on Discharge: 50 Hospital Course: Patient is a 46-year-old male with past medical history as outlined was admitted through the ED on 07/24/2022 with a complaint of sore throat and worsening neck rigidity. He had been diagnosed with strep throat on outpatient basis and said his sore throat had gradually worsened. He had been placed on tramadol and amoxicillin and this has been worsening. He had pain with moving his neck. He denied any fever or chills or any other symptoms. Review of systems otherwise n egative. CT of the soft tissue neck showed no evidence of possible abscess. Due to concerns for meningitis he had a lumbar puncture done analysis of which showed no evidence of meningitis. He was placed on IV vancomycin and ceftriaxone and subsequently switched to Zosyn. His neck pain gradually improved. ID evaluated him and did not think he had any signs of meningitis. He improved and felt better and was discharged on 07/26/2022. He was discharged on p.o. amoxicillin for 4 days to complete 7-day course of antibiotics and was also discharged on scheduled tizanidine every 8 hours for a period of 5 days to help with neck pain and stiffness. Patient seen and examined prior to discharge. He had no complaints and had an uneventful night. Review of symptoms otherwise negative. Labs and vitals reviewed. Home medication reviewed and reconciled. Physical Exam Const alert, oriented x3 and no apparent distress General Appearance: cooperative, comfortable and well kempt Orientation / Consciousness: awake HEENT normocephalic, head/scalp atraumatic, hearing grossly normal bilaterally and moist oral mucous membranes Mouth: oral and palatal mucosa normal Eyes PERRL and EOMs intact bilaterally Neck no lymphadenopathy, supple and no JVD Neck Narrative: nuchal rigidity has improved. Able to flex neck much more now Lymph Lymphatic: no lymphadenopathy noted and no lymphedema noted Resp normal respiratory effort, normal air movement and clear to auscultation bilaterally Cardio regular rate, regular rhythm, S1 normal heart sound, S2 normal heart sound and no murmurs GI normal to inspection, nondistended, normoactive bowel sounds, soft to palpation, non-tender and non-distended Extremity normal capillary refill and no clubbing, cyanosis or edema Skin General Skin Exam: no breakdown Neuro oriented x3, CN's II-XII intact bilaterally, moves all extremities, no focal motor deficits, no sensory deficits noted and deep tendon reflexes 2+ bilaterally Neuro Narrative: neck supple, Kernig's and Brudzinski's signs negative Sensorium / Orientation: awake Motor Exam: strength 5/5 throughout Psych thought process normal and cooperative Appearance: appropriate Weight / BMI Weight Weight: 287 lb 11.252 oz Body Mass Index (BMI) 35.9 ABG / Lab / Microbiology Data Result Diagrams: 07/26/22 06:30 07/26/22 06:30 Laboratory: Laboratory Results - last 24 hr 07/26/22 06:30: WBC 18.6 H, RBC 4.86, Hgb 14.6, Hct 41.6, MCV 85.6, MCH 30.0, MCHC 35.1, RDW Std Deviation 39.8, RDW Coeff of Erika 12.8, Plt Count 308, MPV 8.4, Immature Gran % (Auto) 0.700, Neut % (Auto) 69.5, Lymph % (Auto) 21.2, [place] % (Auto) 7.6, Eos % (Auto) 0.7, Baso % (Auto) 0.3, Absolute Neuts (auto) 12.9 H, Absolute Lymphs (auto) 3.96, Nucleated RBC % 0 07/26/22 06:30: Sodium 137, Potassium 3.6, Chloride 107, Carbon Dioxide 26.0, Anion Gap 4 L, BUN 18, Creatinine 0.82, Estim Creat Clear Calc 133.10, Est GFR (MDRD) Af Amer 129, Est GFR (MDRD) Non-Af 106, BUN/Creatinine Ratio 21.9 H, Glucose 99, Calcium 9.2 Microbiology: Microbiology 07/24/22 00:58 Blood Culture (Wb) - Anticubital Left Blood Culture - Preliminary No growth in 48 hours. 07/24/22 00:55 Blood Culture (Wb) - Right Hand Blood Culture - Preliminary No growth in 48 hours. 07/24/22 02:57 Csf, Spinal Fluid Gram Stain - Final 07/24/22 02:57 Csf, Spinal Fluid CSF Culture - Preliminary No growth in 24 hours. Final to follow. 07/24/22 02:00 Mucosa - Nasopharyngeal Respiratory Panel (PCR) - Final D/C Instructions Discharge Diet: Low fat / Low cholesterol Discharge Activity: Return to Normal Activity Weight Bearing Status: Weight bearing as tolerated Call your doctor if you observe: Fever of 101 or Higher, Shortness of breath, Dizziness, Swelling in the ankles and Chest pain Meaningful Use Info Meaningful Use Diagnoses (Choose all that apply): None applicable Discharge Plan Admission Admit Date/Time: 07/24/22 01:48 Primary Reason for Your Visit: strep pharyngitis Attending Provider: Cheryl Naylor Primary Care Provider: Jareth Judd Consulting Providers: Isha Corea ; Camacho Marshall Discharge Orders/Prescriptions Prescriptions: New amoxicillin 500 mg capsule 500 mg PO Q12H Qty: 8 0RF tizanidine 2 mg Tablet 2 mg PO Q8 Qty: 30 0RF Continued amlodipine 10 mg tablet 10 mg PO DAILY Label Comments: TAKE 1 TABLET BY MOUTH EVERY DAY hydrochlorothiazide 25 mg tablet 25 mg PO DAILY Label Comments: TAKE 1 TABLET BY MOUTH EVERY DAY IN THE MORNING metoprolol succinate 25 mg tablet extended release 24 hr 25 mg PO DAILY Label Comments: TAKE 1 TABLET EVERY DAY aspirin 81 mg Tablet 81 mg PO Referrals / Follow Up: Jareth Judd MD [Primary Care Provider] - Within 2 Weeks Disposition Disposition (needs filled in before D/C Order can be placed): Home, Self Care Charges/Coding Visit Charges Inpatient E&M: 19977 Disch Hosp >30min
== END 2022-07-26 12:57 | disposition home or self-care (01) | DRG 153 ==
LOC: ED 07-24 03:04 → PCU 07-24 03:23
PROVIDERS: Admitting Provider Family Medicine; Emergency Provider Emergency Medicine; PCP Orthopaedic Surgery; Visit Provider Student in an Organized Health Care Education/Training Program
DX: J02.0 Streptococcal pharyngitis (principal); E66.9 Obesity, unspecified; I48.0 Paroxysmal atrial fibrillation; G47.33 Obstructive sleep apnea (adult) (pediatric); I10 Essential (primary) hypertension; M54.2 Cervicalgia; Z87.891 Personal history of nicotine dependence; Z68.36 Body mass index [BMI] 36.0-36.9, adult
CPT/HCPCS: 36415; 62270; 70450; 70491; 80048; 80053; 82945; 83605; 84145; 84157; 85025; 85652; 86140; 87040; 87070; 87205; 87633; 87635; 89050; 89051; 94668; 99252; 99284; 99406; J7030; J7040; J7050; Q9967; A4216; G0463; J0696; J2405; U0003; U0005

== ENCOUNTER → 2022-08-14 | Outpatient (CLI) | payer OTHER, SELFPAY | END | disposition home or self-care (01) | DX: I77.810 Thoracic aortic ectasia (principal); Z82.49 Family history of ischemic heart disease and other diseases of the circulatory system | CPT/HCPCS: 36415 ==